=== PATIENT | female | born 1970 | race Caucasian/White ===

== ENCOUNTER → 2016-11-30 | Outpatient (CLI) | payer OTHER ==
--- NOTE | 2016-11-30 13:16 | KCIC ---
PROCEDURE Bilateral digital screening mammogram. HISTORY 46-year-old female presents for screening mammography. TECHNIQUE Full field digital craniocaudal and mediolateral oblique views of both breasts were obtained. Computer-aided detection is applied. COMPARISON 10/21/2015 and 12/06/2015 FINDINGS Breast parenchymal composition: Level C - Heterogeneously dense. There has been interval increase in a circumscribed nodule within the 11:00 to 12:00 position of the right breast, likely corresponding with a complex cyst or fibroadenoma on a prior sonogram. There are additional areas of nodularity within both breasts which are similar compared to the prior study. There are few benign calcifications. IMPRESSION BI-RADS Category 0: Needs additional imaging. Right breast sonography is recommended to confirm benignity of an increasing circumscribed nodule within the 11:00 to 12:00 anterior right breast. The patient will be contacted to return for additional imaging. This study was interpreted with the benefit of Computerized Aided Detection (CAD). Mammography is not 100% sensitive in detecting breast cancer. Therefore, a self breast exam and a clinical breast exam are very important. A negative mammogram does not negate a clinically suspicious finding and should not result in a delay in biopsying a clinically suspicious abnormality. Electronically signed by: Randi Neff (November 30, 2016 13:14:01)
== END | disposition home or self-care (01) ==
LOC: KCIC MAMMO 08:01
PROVIDERS: ATTEND Nurse Practitioner Women's Health
DX: Z12.31 Encounter for screening mammogram for malignant neoplasm of breast (principal)
CPT/HCPCS: G0202; 77067

== ENCOUNTER → 2016-12-01 | Outpatient (CLI) | payer OTHER ==
--- NOTE | 2016-12-01 15:12 | KCIC ---
PROCEDURE Right breast sonogram. HISTORY 46-year-old female presents for evaluation of a nodule within the 11:00 to 12:00 anterior right breast on a screening mammogram dated 11/30/2016. TECHNIQUE Sonographic imaging of the right breast including all 4 quadrants and the retroareolar region was performed. COMPARISON Mammogram dated 11/30/2016 and sonograms dated 12/06/2015, 11/04/2014 and 04/21/2013. FINDINGS There has been interval increase in the size of a 2.4 cm cyst within the retroareolar aspect of the right breast, corresponding with the mammographic finding of concern. There are multiple surrounding small hypoechoic lesions extending from the subareolar location to approximately 5.0 cm from the nipple, the majority of which measure between 3 and 7 mm in size. The largest lesion is circumscribed and solid with internal blood flow, measuring 7 mm at the 12 o'clock position 5 cm from the nipple. There is a solid-appearing lesion with slightly indistinct superficial margins at the 12 o'clock position 3 cm from the nipple also there are also solid-appearing nodules measuring 7 mm. There is a solid-appearing nodule at the 12 o'clock position 5 cm from nipple measuring 7 mm and at the 12 o'clock position 2.5 cm from the nipple measuring 5 mm. There benign axillary lymph nodes. IMPRESSION 1. 2.4 cm cyst within the retroareolar right breast, corresponding with the mammographic finding of concern. 2. Multiple small hypoechoic lesions within the 12:00 position of the right breast from the subareolar location to approximately 5.0 cm from the nipple, likely representing a combination of cystic, benign fibrous cystic and solid nodules such as fibroadenomas. The largest suspected solid lesion appears solid and measures 7 mm at the 5 cm from the nipple and is stable compared to the sonogram dated 12/06/2015. The sonographic appearance and multiplicity of the remainder of the lesions of the lesions favors benignity. However, short-term followup is indicated. 3. BI-RADS Category 3: Probably benign finding. Short-term right breast sonographic followup in 6 months is recommended. Electronically signed by: Randi Neff (December 01, 2016 15:10:43)
== END | disposition home or self-care (01) ==
LOC: KCIC US 14:03
PROVIDERS: ATTEND Nurse Practitioner Women's Health
DX: R92.8 Other abnormal and inconclusive findings on diagnostic imaging of breast (principal)
CPT/HCPCS: 76641

== ENCOUNTER → 2017-06-12 | Outpatient (CLI) | payer OTHER ==
--- NOTE | 2017-06-12 13:26 | RAD ---
Diagnostic right breast ultrasound 06/12/2017 Clinical indication: Six-month follow-up of right breast nodules. Comparison: Ultrasound right breast 12/01/2016, 11/05/2015, bilateral screening mammogram 11/30/2016 Findings: Right breast ultrasound: There is a retroareolar cyst measuring up to 2.8 cm. At the 1:00 position 5 cm from the nipple (previously described at 12:00 position), not significant change in overall size or appearance and is circumscribed hypoechoic with no significant internal vascularity measuring up to 0.7 cm, previously 0.7 cm. At the 2:00 position, 5 cm from the nipple, there are a cluster of 3 small circumscribed hypoechoic structures measuring up to 0.3 cm. Please see noted additional hypoechoic nodules in the superior left breast are not identified on current examination. Impression: 1. Stable 0.7 cm hypoechoic nodule at 1:00 position 5 cm from the nipple. 2. Interval visualization of 3 adjacent hypoechoic structures measuring up to 0.3 cm. 3. Nonvisualization of previous seen noted hypoechoic nodules. Assessment: BI-RADS Category 3, probably benign. Recommendation: Right breast ultrasound follow-up in 6 months and at the same time bilateral screening mammogram.
== END | disposition home or self-care (01) ==
LOC: KCIC US 11:57
PROVIDERS: ATTEND Nurse Practitioner Women's Health
DX: N63.10 Unspecified lump in the right breast, unspecified quadrant (principal)
CPT/HCPCS: 76641

== ENCOUNTER → 2017-12-19 | Outpatient (CLI) | payer BC | END | disposition home or self-care (01) | LOC: KCIC MAMMO 09:48 | DX: Z12.31 Encounter for screening mammogram for malignant neoplasm of breast (principal); N63.20 Unspecified lump in the left breast, unspecified quadrant | CPT/HCPCS: 76641; 77067 ==

== ENCOUNTER → 2020-12-22 | Outpatient (CLI) | payer BC ==
--- NOTE | 2020-12-22 17:59 | KCIC ---
MRI study of the right knee without contrast Clinical indications: Right knee pain. Pain is located medially and posteriorly. Swelling and arthrit is. TECHNIQUE: Noncontrast MRI sequences of the right knee were performed in all 3 planes. FINDINGS: The anterior and posterior cruciate ligaments are intact. The quadriceps and patellar tendo ns are intact. No articular surface tear of the medial or lateral meniscus is seen. The medial collat eral ligament is intact and no meniscocapsular separation is seen. The lateral collateral ligament co mplex and iliotibial band and popliteus tendon are intact. No posterior lateral corner injury is seen . There is mild chondromalacia of the lateral tibiofemoral joint compartment with mild degenerative s purring. There is mild degenerative spurring of the medial tibiofemoral joint compartment. There is m ild stress reaction bone marrow edema of the lateral proximal tibial epiphysis and metaphysis. This e xtends from the lateral tibial spine. No fracture or marrow infiltrative process is seen otherwise. T he patella is normally aligned. There is severe chondromalacia patellae involving the medial patellar facet and apex. There is subchondral stress reaction bone marrow edema of the medial patellar facet and apex. There is less prominent mild chondromalacia patellae involving the lateral patellar facet. There is moderate trochlear chondromalacia involving the medial portion of the trochlea. The medial a nd lateral retinacular ligaments are intact. There is a thin medial plica shelf. There is a moderate- sized knee joint effusion. No Joy's cyst is seen. No muscle edema is evident. IMPRESSION: No ligament or tendon or meniscal tear. 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 There is a thin medial plica sh elf. Mild chondromalacia of the lateral tibial femoral joint compartment with mild degenerative spurring. There is mild stress reaction bone marrow edema of the lateral proximal tibia. There is mild degenera tive spurring of the medial tibial femoral joint compartment. Electronically signed by: Marbin Arredondo MD (12/22/2020 5:57 PM) [id number]
== END ==
LOC: KCIC MRI 14:54
PROVIDERS: ATTEND Internal Medicine Rheumatology
DX: M17.11 Unilateral primary osteoarthritis, right knee (principal); M94.261 Chondromalacia, right knee; M76.891 Other specified enthesopathies of right lower limb, excluding foot
CPT/HCPCS: 73721